=== PATIENT | female | born 1995 | race Two or more races ===

== ENCOUNTER → 2020-05-25 13:11 | Outpatient (CLI) | payer OTHER ==
[~2020-05-25 13:11] MED LIST: ACETAMINOPHEN650 M2 PO; SYNTHROID50 MCG; VITAMIN C WIT1000 MG PO
== END | disposition home or self-care (01) ==
LOC: LAB 13:11
DX: Z03.818 Encounter for observation for suspected exposure to other biological agents ruled out (principal); Z20.828 Contact with and (suspected) exposure to other viral communicable diseases

== ENCOUNTER 2020-05-26 13:11 | Emergency (ER) | payer OTHER ==
[~2020-05-26] VITALS: Ht 162.6 cm; Wt 80.7 kg
[2020-05-26] MEDS ORDERED: SYNTHROID50 MCG (13:18)
[2020-05-26] MEDS ORDERED: VITAMIN C WIT1000 MG PO (17:02)
[2020-05-26] MEDS ORDERED: ACETAMINOPHEN650 M2 PO (17:02)
== END 2020-05-26 17:57 | disposition home or self-care (01) ==
LOC: ER 13:11
DX: B34.9 Viral infection, unspecified (principal); Z03.818 Encounter for observation for suspected exposure to other biological agents ruled out

== ENCOUNTER → 2020-05-29 | Emergency (ER) | payer OTHER | END | disposition left against medical advice (07) | LOC: ER 15:19 | DX: Z53.20 Procedure and treatment not carried out because of patient's decision for unspecified reasons (principal) ==